=== PATIENT | female | born 1960 | race Caucasian/White ===

== ENCOUNTER → 2016-07-10 | Outpatient (CLI) | payer OTHER | END | disposition home or self-care (01) | LOC: C.MAMM 14:05 | PROVIDERS: ATTEND Internal Medicine | DX: M85.80 Other specified disorders of bone density and structure, unspecified site (principal) ==

== ENCOUNTER → 2016-08-07 | Outpatient (CLI) | payer OTHER ==
--- NOTE | 2016-08-07 16:24 | DIAGNOSTIC IMAGING REPORT ---
CHEST 2 VIEWS ROUTINE CLINICAL HISTORY: COUGH COMPARISON STUDY: No previous studies for comparison. FINDINGS: The bones soft tissues and hemidiaphragms are normal. The cardiomediastinal silhouette is normal. The lungs are clear. The pulmonary vasculature is normal. IMPRESSION: Negative chest. Electronically signed by: Guillermo Wei M.D. 08/07/2016 4:23 PM Dictated Date/Time: 08/07/2016 4:23 PM
== END | disposition home or self-care (01) ==
LOC: C.RAD1850 16:04
PROVIDERS: ATTEND Family Medicine
DX: R05 Cough (principal)

== ENCOUNTER → 2017-01-09 | Outpatient (CLI) | payer OTHER ==
--- NOTE | 2017-01-10 12:44 | MAMMOGRAPHY REPORT ---
BILATERAL DIGITAL SCREENING MAMMOGRAM TOMOSYNTHESIS WITH CAD: 01/09/2017 CLINICAL HISTORY: Routine screening. Patient has no complaints. TECHNIQUE: Breast tomosynthesis in addition to standard 2D mammography was performed. Current study was also evaluated with a Computer Aided Detection (CAD) system. COMPARISON: Comparison is made to exams dated: 01/06/2016 mammogram, 07/18/2013 mammogram, 07/15/2012 m ammogram, 07/10/2011 mammogram - [facility], 12/11/2008, and 12/09/2008. BREAST COMPOSITION: The tissue of both breasts is almost entirely fatty. There are involutional ortiz nges comparing to prior available mammograms. FINDINGS: No suspicious mass, architectural distortion or cluster of suspicious microcalcifications is seen. IMPRESSION: ACR BI-RADS CATEGORY 1: NEGATIVE There is no mammographic evidence of malignancy. A 1 year screening mammogram is recommended. The pa tient will receive written notification of the results. Approximately 10% of breast cancers are not detected with mammography. A negative mammographic report should not delay biopsy if a clinically suggestive mass is present. Neyda Childers M.D. ay/:01/09/2017 16:01:22 Eyelet Maker: Annelise MORRIS(Lara)(M), [facility] letter sent: Normal 1/2 BI-RADS Code: ACR BI-RADS Category 1: Negative
== END | disposition home or self-care (01) ==
LOC: C.MAMM 07:34
PROVIDERS: ATTEND Obstetrics & Gynecology
DX: Z12.31 Encounter for screening mammogram for malignant neoplasm of breast (principal)

== ENCOUNTER → 2017-01-16 | Outpatient (CLI) | payer OTHER ==
[2017-01-16 09:56] LABS: BLOOD UREA NITROGEN 12 mg/dl (7-18); BUN/CREATININE RATIO 15.8 (10-20); CARBON DIOXIDE 28 mmol/L (21-32); CHLORIDE 105 mmol/L (98-107); CREATININE 0.76 mg/dl (0.60-1.20); GLUCOSE 100 mg/dl (70-99); POTASSIUM 4.3 mmol/L (3.5-5.1); SODIUM 139 mmol/L (136-145)
[2017-01-16 10:00] LABS: CHOLESTEROL 203 mg/dl (0-200); HDL CHOLESTEROL 68 mg/dl; LDL CHOLESTEROL CALCULATED 122 mg/dl; TRIGLYCERIDES 64 mg/dl (0-150); VERY LOW DENSITY LIPOPROT CALC 13 mg/dl
== END | disposition home or self-care (01) ==
LOC: C.LAB1850 07:58
PROVIDERS: ATTEND Internal Medicine
DX: Z13.1 Encounter for screening for diabetes mellitus (principal); Z13.220 Encounter for screening for lipoid disorders; E55.9 Vitamin D deficiency, unspecified

== ENCOUNTER 2017-09-05 17:17 | Emergency (ER) | payer OTHER ==
[~2017-09-05] VITALS: Ht 162.6 cm; Wt 77.2 kg
[2017-09-05 17:19] VITALS: TEMP 36.8; Ht 162.6 cm; Wt 77.2 kg
[2017-09-05] MEDS ORDERED: ONDANSETRON INJ 2 MG/ML 2 ML VIAL IV STA (17:52)
[2017-09-05] MEDS ORDERED: SODIUM CHLORIDE 0.9% 1000ML 1,000 ML IV STA (17:52)
[2017-09-05] MEDS ORDERED: MoRPHine SULFATE 4 MG/ML 1 ML CARP\\VIAL IV STA (17:52)
[2017-09-05] MEDS ORDERED: MULT-506 PO (18:00)
[2017-09-05] MEDS ORDERED: OPTIRAY 320 IV PRN (18:00)
[2017-09-05] MEDS ORDERED: CHOL2000 PO (18:00)
[2017-09-05 18:16] LABS: BASO % 0.2 %; BASO ABS # 0.02 K/uL (0-0.2); EOS % 0.3 %; EOS ABS # 0.03 K/uL (0-0.5); HEMATOCRIT 43.6 % (37-47); HEMOGLOBIN 15.3 g/dL (12.0-16.0); IG# 0.02 K/uL (0.00-0.02); LYMPH % 16.6 %; LYMPH ABS # 1.57 K/uL (1.2-3.4); MEAN CELL VOLUME 89.9 fL (80-100); MEAN CORPUSCULAR HEMOGLOBIN 31.5 pg (25-34); MEAN CORPUSCULAR HGB CONC 35.1 g/dl (32-36); MEAN PLATELET VOLUME 8.9 fL (7.4-10.4); MONO ABS # 0.47 K/uL (0.11-0.59); NEUT % 77.7 %; NEUT ABS # 7.34 K/uL (1.4-6.5); PLATELET COUNT 323 K/uL (130-400); RED CELL DISTRIBUTION WIDTH CV 11.6 % (11.5-14.5); WHITE BLOOD COUNT 9.45 K/uL (4.8-10.8)
[2017-09-05 18:34] LABS: ALBUMIN 4.4 gm/dl (3.4-5.0); CALCIUM 9.1 mg/dl (8.5-10.1); CREATININE 0.71 mg/dl (0.60-1.20); POTASSIUM 3.7 mmol/L (3.5-5.1)
[2017-09-05 18:37] LABS: TOTAL PROTEIN 8.2 gm/dl (6.4-8.2)
--- NOTE | 2017-09-05 19:00 | DIAGNOSTIC IMAGING REPORT ---
ABDOMEN AND PELVIS CT WITH IV CONTRAST CT DOSE: 443.99 mGy.cm HISTORY: Acute upper abdominal pain with abdominal distention bilateral upper abd with distension sensations TECHNIQUE: Multiaxial CT images of the abdomen and pelvis were performed following the use of intravenous contrast. A dose lowering technique was utilized adhering to the principles of ALARA. COMPARISON STUDY: CT chest 10/27/2009. FINDINGS: Minimal dependent subsegmental bibasilar atelectasis. There is no pneumatosis or pneumoperitoneum identified. Imaged inferior cardiac chambers are unremarkable. There are multiple circumscribed low attenuating lesions throughout the right and left hepatic lobes, largest measuring up to 3.2 cm within the right hepatic lobe suggesting hepatic cysts. There is no intrahepatic biliary ductal dilation identified. Mild gallbladder distention. The spleen, pancreas and right adrenal gland are unremarkable. There is mild thickening of the left adrenal gland. Kidneys, ureters and urinary bladder are within normal limits. Uterus and adnexa are also unremarkable. Aorta is normal in course and caliber. No bulky adenopathy. No bowel obstruction. There are several nondilated fluid-filled loops of small bowel within the pelvis with air-fluid levels, likely physiologic. Moderate colonic diverticulosis without evidence of acute diverticulitis. Fluid is seen throughout the colon, notably within the cecum. There is a tubular nondilated structure within the abdominal right lower quadrant suggesting a normal appendix. No right lower quadrant inflammatory changes. Mild the prominent lymph nodes of the right lower quadrant mesentery measuring up to 6 mm. Soft tissues are unremarkable. Bones appear intact. IMPRESSION: 1. Several fluid-filled loops of small bowel with fluid also seen within several loops of colon. These findings may be physiologic or may represent enteritis with diarrheal state. No bowel obstruction or significant bowel wall thickening identified. 2. Normal appendix. 3. Multiple hepatic cysts. 4. Colonic diverticulosis without CT evidence of acute diverticulitis. Electronically signed by: Rajan Arroyo M.D. 09/05/2017 6:59 PM Dictated Date/Time: 09/05/2017 6:51 PM
[2017-09-05] MEDS ORDERED: ONDANSETRON HOME PACK 4MG OD TAB PO ONE (20:00)
[2017-09-05 20:16] VITALS: BP 160/94; PULSE 65; O2SAT 96
--- NOTE | 2017-09-06 19:34 | EMERGENCY ROOM VISIT NOTE ---
ED Visit Note First contact with patient: 17:25 Chief Complaint: Abdominal pain. History of Present Illness: Ms. Hoang is a 57 year-old white female who ambulates into the ED accompanied by her complaining of upper and lateral abdominal pain. Historically patient reports no significant gastrointestinal disorders or abdominal surgeries. Patient reports a gradual onset of bilateral upper quadrant and bilateral lateral abdominal pain that started 4 days ago. Since that time the pain has been intermittent but has been increasing in intensity. The pain is currently described as sharp and pressure-like pain over the upper borders; following the lower ribs, of the abdomen bilaterally and extending into the lateral aspect of the abdomen. Since Sunday each episode she has been experiencing has been lasting longer. She currently rates her discomfort 7/10. Her pain worsens when she is sitting up and is improved when she is lying down. Associated with her pain she has been nauseated but has not vomited and she has noted a decreased appetite. . Patient denies fevers, chills, sweats, skin eruptions, skin color changes, upper respiratory tract symptoms, shortness of breath, chest pain, nausea, vomiting, diarrhea, constipation, rectal bleeding, black/tarry stools, urinary symptoms, hematuria, vaginal bleeding, vaginal discharge, back/flank pain. Review of Systems: As noted above in history of present illness. All body systems were reviewed and found to be negative as noted above. Past Medical History: Arthralgias and status post wisdom teeth extraction. Current Medications: Multivitamins. Allergies to Medications: Sulfa. Social History: Patient is currently employed; she feels safe in her home environment; she denies tobacco use and admits to social alcohol use. Physical Examination: Vital Signs: Date Time Temp Pulse Resp B/P (MAP) Pulse Ox O2 Delivery O2 Flow Rate FiO2 09/05/17 20:16 65 16 160/94 96 09/05/17 20:03 58 12 162/95 95 Room Air 09/05/17 18:57 63 18 145/94 98 Room Air 09/05/17 18:35 57 14 96 Room Air 09/05/17 18:07 61 09/05/17 17:19 36.8 64 18 178/124 99 Room Air GENERAL: 57-year-old female in mild to moderate distress due to pain, nontoxic- appearing, afebrile and hemodynamically stable. NEUROLOGICAL: Awake, alert and oriented to person, place and time. Answering questions appropriately and following commands. Normal gait. Good hand eye coordination. SKIN: Warm, dry and pink. No soft tissue eruptions or trauma noted. HEENT: Atraumatic and normocephalic. PERRLA. Sclera white and conjunctiva pink. Oral cavity moist and pink. Pharynx is nonerythematous or edematous. Speech normal. No lymphadenopathy. Trachea midline. No jugular venous distention. BACK: No tenderness over the bony spine. No CVA tenderness. THORAX: Lungs sounds are clear to auscultation and equal bilaterally with symmetrical chest wall. No wheezing, rales or rhonchi. No crepitus, tenderness , subcutaneous air or deformities noted. HEART: Regular rate and rhythm. No gallops, rubs or murmurs are appreciated. ABDOMEN: Flat, soft and nontender. Positive bowel sounds in all quadrants. No guarding, rigidity or organomegaly. EXTREMITIES: Moves all extremities well on command and with purpose. All distal neurovascular statuses are intact and equal bilaterally. ED Course: Patient is assessed as noted above. Laboratory Testing: Test 09/05/17 17:55 09/05/17 18:00 Range/Units Urine Color YELLOW Urine Appearance CLEAR CLEAR Urine pH 6.0 4.5-7.5 Urine Specific [place] 1.026 1.000-1.030 Urine Protein NEG NEG Urine Glucose (UA) NEG NEG Urine Ketones 3+ NEG Urine Occult Blood 1+ NEG Urine Nitrite NEG NEG Urine Bilirubin NEG NEG Urine Urobilinogen NEG NEG Urine Leukocyte Esterase MODERATE NEG Urine WBC (Auto) >30 0-5 /hpf Urine RBC (Auto) 5-10 0-4 /hpf Urine Hyaline Casts (Auto) 0 0-5 /lpf Urine Epithelial Cells (Auto) 20-30 0-5 /lpf Urine Bacteria (Auto) NEG NEG Urine Mucus PRESENT NONE PRSENT White Blood Count 9.45 4.8-10.8 K/uL Red Blood Count 4.85 4.2-5.4 M/uL Hemoglobin 15.3 12.0-16.0 g/dL Hematocrit 43.6 37-47 % Mean Corpuscular Volume 89.9 80-100 fL Mean Corpuscular Hemoglobin 31.5 25-34 pg Mean Corpuscular Hemoglobin Concent 35.1 32-36 g/dl Platelet Count 323 130-400 K/uL Mean Platelet Volume 8.9 7.4-10.4 fL Neutrophils (%) (Auto) 77.7 % Lymphocytes (%) (Auto) 16.6 % Monocytes (%) (Auto) 5.0 % Eosinophils (%) (Auto) 0.3 % Basophils (%) (Auto) 0.2 % Neutrophils # (Auto) 7.34 1.4-6.5 K/uL Lymphocytes # (Auto) 1.57 1.2-3.4 K/uL Monocytes # (Auto) 0.47 0.11-0.59 K/uL Eosinophils # (Auto) 0.03 0-0.5 K/uL Basophils # (Auto) 0.02 0-0.2 K/uL RDW Standard Deviation 38.0 36.4-46.3 fL RDW Coefficient of Variation 11.6 11.5-14.5 % Immature Granulocyte % (Auto) 0.2 % Immature Granulocyte # (Auto) 0.02 0.00-0.02 K/uL Sodium Level 138 136-145 mmol/L Potassium Level 3.7 3.5-5.1 mmol/L Chloride Level 105 98-107 mmol/L Carbon Dioxide Level 24 21-32 mmol/L Anion Gap 8.0 3-11 mmol/L Blood Urea Nitrogen 9 7-18 mg/dl Creatinine 0.71 0.60-1.20 mg/dl Est Creatinine Clear Calc Drug Dose 90.1 ml/min Estimated GFR () 111.1 Estimated GFR (Non- 95.9 BUN/Creatinine Ratio 12.7 10-20 Random Glucose 99 70-99 mg/dl Calcium Level 9.1 8.5-10.1 mg/dl Total Bilirubin 0.7 0.2-1 mg/dl Direct Bilirubin 0.1 0-0.2 mg/dl Aspartate Amino Transf (AST/SGOT) 15 15-37 U/L Alanine Aminotransferase (ALT/SGPT) 18 12-78 U/L Alkaline Phosphatase 70 45-117 U/L Total Protein 8.2 6.4-8.2 gm/dl Albumin 4.4 3.4-5.0 gm/dl Lipase 110 73-393 U/L Contrast Abdominal/Pelvic CT: Was reviewed by myself and read by the radiologist showing several fluid filled loops of small bowel and also within the colon of questionable etiology, normal-appearing appendix, multiple hepatic cysts and colonic diverticulosis without evidence of diverticulitis. Patient was hydrated with normal saline and she received 4 mg of morphine IV for pain and 4 mg of Zofran IV. Patient was reassessed multiple times during her stay in the emergency department. Patient's case was reviewed with Dr. Beck; we agreed on diagnostic approach , treatment, disposition and plan. Patient was educated about today's findings and instructed on her treatment plan ; she verbalized understanding and agreement with this plan. Clinical Impression: Abdominal pain. Decision-Making: Initially my differential diagnosis I considered bowel obstruction, diverticulitis, hepatitis, pancreatitis, cholecystitis, ileus and other causes. Disposition: Patient discharged home in stable condition accompanied by her ; prior to departure she was reassessed and subjectively reported she was feeling better and rated her discomfort 4/10. Plan: Patient was encouraged alternate ibuprofen and acetaminophen every 6 hours for pain. Patient was prescribed Zofran 4 mg every 6 hours as needed for nausea/vomiting. Patient was encouraged use a bland diet for 48 hours and stay well-hydrated with increased clear fluids. Patient was encouraged to keep her upcoming appointment with her PCP tomorrow for reevaluation. Patient was encouraged return the ED for worsening/uncontrolled pain, worsening nausea, bloody stool, bloody vomitus, fevers or any new/concerning symptoms.
== END 2017-09-05 20:18 | disposition home or self-care (01) ==
LOC: C.EDB 17:18 → C.EDA 20:18
DX: R10.10 Upper abdominal pain, unspecified (principal); K76.89 Other specified diseases of liver; K57.30 Diverticulosis of large intestine without perforation or abscess without bleeding; M19.90 Unspecified osteoarthritis, unspecified site; Z88.2 Allergy status to sulfonamides

== ENCOUNTER → 2017-09-06 | Outpatient (CLI) | payer OTHER ==
[~2017-09-06] MED LIST: CHOL2000 PO; MULT-506 PO
== END | disposition home or self-care (01) ==
LOC: C.LAB1850 11:12
PROVIDERS: ATTEND Internal Medicine
DX: R10.9 Unspecified abdominal pain (principal)

== ENCOUNTER → 2017-09-06 | Outpatient (CLI) | payer OTHER ==
--- NOTE | 2017-09-06 12:34 | DIAGNOSTIC IMAGING REPORT ---
ABDOMEN LIMITED (US) CLINICAL HISTORY: 57 years-old Female presenting with R10.9 Abdominal painu/s [id number]. TECHNIQUE: Real-time grayscale and limited color Doppler ultrasound imaging of the abdomen limited to the right upper quadrant was performed. COMPARISON: CT from 09/05/2017. FINDINGS: Pancreas: Visualized portions of the pancreatic head and body normal. Liver: Multiple anechoic lesions compatible with hepatic cysts throughout the liver. Otherwise normal background liver parenchymal echogenicity and echotexture. The liver measures 12.9 cm in maximal sagittal dimension. Main portal vein patent with normal directional flow. Biliary: No intrahepatic biliary ductal dilatation. Common bile duct measures up to 5 mm in diameter. Gallbladder: The gallbladder is physiologically distended. No evidence of gallstones, gallbladder wall thickening, abnormal gallbladder distention, or pericholecystic fluid or inflammatory change. Sonographic Solano's sign negative. Right kidney: Normal in appearance. No hydronephrosis. Ascites: None. Other: None. IMPRESSION: No cholelithiasis or biliary ductal dilatation. No evidence of cholecystitis. Electronically signed by: Luciano Gamino M.D. 09/06/2017 12:33 PM Dictated Date/Time: 09/06/2017 12:31 PM
== END | disposition home or self-care (01) ==
LOC: C.ULTR 12:03
PROVIDERS: ATTEND Internal Medicine
DX: R10.9 Unspecified abdominal pain (principal)

== ENCOUNTER → 2018-01-14 | Outpatient (CLI) | payer OTHER ==
--- NOTE | 2018-01-14 15:41 | MAMMOGRAPHY REPORT ---
BILATERAL DIGITAL SCREENING MAMMOGRAM TOMOSYNTHESIS WITH CAD: 01/14/2018 CLINICAL HISTORY: Routine screening. TECHNIQUE: The study was acquired using full field digital technology and interpreted from soft copy. Breast tomosynthesis in addition to standard 2D mammography was performed. Current study was also ev aluated with a Computer Aided Detection (CAD) system. COMPARISON: Comparison is made to exams dated: 01/09/2017 mammogram, 01/06/2016 mammogram, 07/18/2013 m ammogram, 07/15/2012 mammogram, 07/10/2011 mammogram - [facility], and 12/09/2008. BREAST COMPOSITION: There are scattered areas of fibroglandular density in both breasts. FINDINGS: There is a possible area of architectural distortion in the lateral posterior right breast best seen on CC tomosynthesis slice 35/82, that could represent normal overlapping tissue although ad ditional spot compression tomosynthesis views and possible ultrasound are recommended. No other suspicious mass, architectural distortion or cluster of microcalcifications is seen. IMPRESSION: ACR BI-RADS CATEGORY 0: INCOMPLETE EVALUATION: NEED ADDITIONAL IMAGING EVALUATION The possible area of architectural distortion in the lateral, posterior right breast on the CC view n eeds additional evaluation. The patient will be called to schedule an appointment. Some breast cancers are not detected with mammography. A negative mammographic report should not stefani y biopsy if a clinically suggestive mass is present. Neyda Childers M.D. ay/:01/14/2018 08:49:27 Torpedoman'S Mate: RT Neelima(Lara)(M), [facility] letter sent: Addl Imaging 0 BI-RADS Code: ACR BI-RADS Category 0: Incomplete Evaluation: Need Additional Imaging Evaluation
== END | disposition home or self-care (01) ==
LOC: C.MAMM 07:33
PROVIDERS: ATTEND Obstetrics & Gynecology
DX: Z12.31 Encounter for screening mammogram for malignant neoplasm of breast (principal)

== ENCOUNTER → 2018-01-17 | Outpatient (CLI) | payer OTHER ==
--- NOTE | 2018-01-17 14:57 | MAMMOGRAPHY REPORT ---
UNILATERAL RIGHT DIGITAL DIAGNOSTIC MAMMOGRAM TOMOSYNTHESIS AND TARGETED RIGHT ULTRASOUND: 01/17/2018 CLINICAL HISTORY: Callback from screening mammogram for right breast asymmetry with possible associat ed architectural distortion. TECHNIQUE: The study was acquired using full field digital technology and interpreted from soft copy. Breast tomosynthesis in addition to standard 2D mammography was performed. Spot compression right C C and MLO 2D and tomosynthesis images were obtained. COMPARISON: Comparison is made to exams dated: 01/14/2018 mammogram, 01/09/2017 mammogram, 01/06/2016 m ammogram, 07/18/2013 mammogram, 07/15/2012 mammogram, and 07/10/2011 mammogram - [facility]. BREAST COMPOSITION: There are scattered areas of fibroglandular density in right breast. FINDINGS: The previously described asymmetry with questionable associated architectural distortion in the right lateral breast on the CC view effaces to a baseline appearance on the additional spot compression vi ews. The asymmetry in this region appears stable compared to multiple prior exams including the 2011 and 2008 exam, and has the appearance of normal fibroglandular tissue on the tomosynthesis images, w ith no associated architectural distortion seen on the additional views. Targeted ultrasound was performed of the right lateral breast in the region of the mammographic asymm etry. Sonographically normal tissue is seen in this region, without evidence of a mass or other susp icious sonographic abnormality. IMPRESSION: ACR BI-RADS CATEGORY 2: BENIGN, ULTRASOUND ACR BI-RADS CATEGORY 2: BENIGN The right lateral breast asymmetry effaces to baseline appearance on the additional views, with no as sociated architectural distortion seen on the additional views and no suspicious sonographic correlat e evident. Findings are benign and compatible with normal fibroglandular tissue. There is no mammog raphic or sonographic evidence of malignancy. A 1 year screening mammogram is recommended.(01/18/2019 ) The patient has been verbally notified of the results. Some breast cancers are not detected with mammography. A negative mammographic report should not stefani y biopsy if a clinically suggestive mass is present. Sara Yates M.D. ah/:01/17/2018 09:00:39 Timber Buyer: RT Harsh(R)(M), [facility]; Sara Yates MD, [facility] letter sent: Normal 06/19 OVERALL STUDY BIRADS: 2 Benign
== END | disposition home or self-care (01) ==
LOC: C.MAMM 08:30
PROVIDERS: ATTEND Obstetrics & Gynecology
DX: N64.89 Other specified disorders of breast (principal)